=== PATIENT | male | born 1995 | race African-American/Black ===

== ENCOUNTER 2017-10-11 07:48 | Emergency (ER) | payer OTHER ==
[~2017-10-11] VITALS: Ht 190.5 cm; Wt 145.4 kg
[~2017-10-11 07:48] MED LIST: INSLAN SQ; INSULIN SHORT ACTING SQ
[2017-10-11] MEDS ORDERED: ANTI HTN PO (08:01)
[2017-10-11] MEDS ORDERED: METF10002 PO (08:01)
[2017-10-11 08:08] LABS: GLUCOSE,POINT OF CARE 154 MG/DL (70-110)
[2017-10-11] MEDS ORDERED: ACETAMINOPHEN 500 MG TABLET PO ONE (08:30)
[2017-10-11 09:29] VITALS: BP 120/68
== END 2017-10-11 10:06 | disposition home or self-care (01) ==
LOC: EMS 07:50
DX: R05 Cough (principal); M79.1 Myalgia; J45.909 Unspecified asthma, uncomplicated; I10 Essential (primary) hypertension; E11.9 Type 2 diabetes mellitus without complications
CPT/HCPCS: 82962; 99283

== ENCOUNTER 2018-10-24 09:41 | Emergency (ER) | payer MEDICAID ==
[~2018-10-24] VITALS: Ht 193 cm; Wt 113.6 kg
[~2018-10-24 09:41] MED LIST changes: +ANTI HTN PO; -INSLAN SQ; -INSULIN SHORT ACTING SQ; +METF-446 PO
[2018-10-24] MEDS ORDERED: LIDOCAINE 1% 10 ML VIAL INJ ONE (10:30)
[2018-10-24 11:55] VITALS: BP 127/79
== END 2018-10-24 12:05 | disposition home or self-care (01) ==
LOC: EMS 09:43
DX: S43.084A Other dislocation of right shoulder joint, initial encounter (principal); E11.9 Type 2 diabetes mellitus without complications; I10 Essential (primary) hypertension; J45.909 Unspecified asthma, uncomplicated; Z79.899 Other long term (current) drug therapy; W22.8XXA Striking against or struck by other objects, initial encounter; Y93.C1 Activity, computer keyboarding; Y92.89 Other specified places as the place of occurrence of the external cause; Y99.8 Other external cause status
CPT/HCPCS: 23650; 73030; 82962; 99284; J3490

== ENCOUNTER 2018-11-06 10:40 | Emergency (ER) | payer MEDICAID ==
[~2018-11-06] VITALS: Ht 193 cm; Wt 113.6 kg
[2018-11-06 10:54] LABS: GLUCOSE,POINT OF CARE 109 MG/DL (70-110)
[2018-11-06 13:06] VITALS: BP 135/72
== END 2018-11-06 13:39 | disposition home or self-care (01) ==
LOC: EMS 10:41
DX: L02.412 Cutaneous abscess of left axilla (principal); J45.909 Unspecified asthma, uncomplicated; E11.9 Type 2 diabetes mellitus without complications; I10 Essential (primary) hypertension; Z79.84 Long term (current) use of oral hypoglycemic drugs

== ENCOUNTER 2019-03-17 11:11 | Emergency (ER) | payer SELFPAY ==
[~2019-03-17] VITALS: Ht 193 cm; Wt 113.6 kg
[2019-03-17 11:29] LABS: GLUCOSE,POINT OF CARE 103 MG/DL (70-110)
[2019-03-17] MEDS ORDERED: IBUPROFEN 800 MG TABLET PO ONE (12:30)
[2019-03-17] MEDS ORDERED: MUPIROCIN CALCIUM 2% 15 GM CREAM TP ONE (12:30)
[2019-03-17 13:00] VITALS: BP 140/86
== END 2019-03-17 13:07 | disposition home or self-care (01) ==
LOC: EMS 11:12
DX: L73.9 Follicular disorder, unspecified (principal); I10 Essential (primary) hypertension; E11.9 Type 2 diabetes mellitus without complications; J45.909 Unspecified asthma, uncomplicated

== ENCOUNTER 2020-03-03 13:55 | Emergency (ER) | payer MEDICAID ==
[~2020-03-03] VITALS: Ht 190.5 cm; Wt 115.9 kg
[~2020-03-03 13:55] MED LIST changes: -ANTI HTN PO
[2020-03-03 15:47] VITALS: BP 119/71
[2020-03-03 16:15] LABS: GLUCOSE,POINT OF CARE 117 MG/DL (70-110)
== END 2020-03-03 16:00 | disposition home or self-care (01) ==
LOC: EMS 14:01
DX: S43.004A Unspecified dislocation of right shoulder joint, initial encounter (principal); E11.9 Type 2 diabetes mellitus without complications; J45.909 Unspecified asthma, uncomplicated; I10 Essential (primary) hypertension; Z79.84 Long term (current) use of oral hypoglycemic drugs; X58.XXXA Exposure to other specified factors, initial encounter; Y93.89 Activity, other specified; Y92.89 Other specified places as the place of occurrence of the external cause; Y99.8 Other external cause status
CPT/HCPCS: 23650

== ENCOUNTER 2020-05-20 18:47 | Emergency (ER) | payer MEDICAID, OTHER ==
[~2020-05-20] VITALS: Ht 188 cm; Wt 118.2 kg
[2020-05-20 20:06] VITALS: BP 126/80
== END 2020-05-20 20:59 | disposition home or self-care (01) ==
LOC: EMS 18:47
DX: H61.22 Impacted cerumen, left ear (principal)
CPT/HCPCS: 69209

== ENCOUNTER 2020-05-26 18:09 | Emergency (ER) | payer OTHER ==
[~2020-05-26] VITALS: Ht 188 cm; Wt 100.0 kg
[2020-05-26 20:34] VITALS: BP 123/67
== END 2020-05-26 20:37 | disposition home or self-care (01) ==
LOC: EMS 18:11
DX: H61.22 Impacted cerumen, left ear (principal)
CPT/HCPCS: 69209

== ENCOUNTER 2024-06-19 17:11 | Emergency (ER) | payer OTHER ==
[~2024-06-19] VITALS: Ht 188 cm; Wt 104.5 kg
[2024-06-19 17:14] VITALS: TEMP 97.9
[2024-06-19] MEDS: DIAZEPAM 5 MG TABLET PO ONE (17:49)
[2024-06-19 18:30] VITALS: BP 135/75; PULSE 70; RESP 18; O2SAT 99
== END 2024-06-19 18:58 | disposition home or self-care (01) ==
LOC: EMS 17:14
DX: S43.014A Anterior dislocation of right humerus, initial encounter (principal); J45.909 Unspecified asthma, uncomplicated; E11.9 Type 2 diabetes mellitus without complications; I10 Essential (primary) hypertension; X50.1XXA Overexertion from prolonged static or awkward postures, initial encounter; Y93.43 Activity, gymnastics; Y92.89 Other specified places as the place of occurrence of the external cause; Y99.8 Other external cause status
CPT/HCPCS: 23650; 99284; 73030-TC; Z7502; Z7610